=== PATIENT | female | born 1950 | race Caucasian/White ===

== ENCOUNTER 2018-12-30 10:19 | Emergency (ER) | payer BC, OTHER ==
[~2018-12-30] VITALS: Ht 157.5 cm; Wt 69.4 kg
--- OUTSIDE RECORDS SUMMARY | 2018-12-30 10:22 | XMS REPORT | Summary of Care ---
Author Author [facility] [place] Organization [facility] Address Unknown Phone Unavailable Encounter HQ Encntr_alijoanne(FIN) [id number] Date(s): 08/24/15 - 08/24/15 [facility] [place] [address] [place], [place] [address] [phone] Discharge Disposition: Home Attending Physician: Itzel Campos MD Vital Signs No data available for this section Problem List No data available for this section Allergies, Adverse Reactions, Alerts No data available for this section Medications No data available for this section Results No data available for this section Immunizations No data available for this section Procedures No data available for this section Social History No data available for this section Assessment and Plan No data available for this section
--- OUTSIDE RECORDS SUMMARY | 2018-12-30 10:22 | XMS REPORT | Continuity of Care Document ---
Author Author [employer] Organization [employer] Address Unknown Phone Unavailable Care Team Providers Care Overseamer Name Role Phone [employer] Unavailable Unavailable Problems Problem Status Onset Date Classification Date Reported Comments Source Z78.0 - ASYMPTOMATIC MENOPAUSAL STATE Active 08/12/2015 [facility] [place] F10.97 - "ALCOHOL USE, UNSP WITH ALCOHOL Active 05/31/2015 [facility] [place] Final: Encounter for screening mammogram for malignant neoplasm of breast 08/15/2015 [facility] [place] Final: Atherosclerotic heart disease of [place] coronary artery without angina pectoris 08/15/2015 [facility] [place] Medications No Data Provided for This Section Allergies, Adverse Reactions, Alerts No Known Medication Allergies Immunizations No Data Provided for This Section Results No Data Provided for This Section Pathology Reports No Data Provided for This Section Diagnostic Reports Report Value Date Source Brain wo contrast MRI HISTORY: G31.84 Mild cognitive impairment, so stated - G31.84 Mild cognitive impairment, so stated TECHNIQUE: Multiplanar, multisequence MR of the brain was performed without contrast. COMPARISON: Study dated 06/01/2015. FINDINGS: The structures of the posterior fossa and supratentorial space are developmentally normal. Normal ley-white matter differentiation is preserved throughout. The CSF containing spaces of the brain are prominent but maintain normal symmetry. There is no acute intracranial hemorrhage, intraparenchymal mass, or ischemia. The central arterial and major dural sinus flow voids are patent. The orbital contents are within normal limits. The pneumatized portions of the skull are clear. IMPRESSION: Underlying age-related involutional changes again seen. No acute intracranial pathology. [id number] 02/22/2017 [facility] Bone Density DXA [employer] MA - Bone Density DXA [employer] MA BONE DENSITY EVALUATION: 08/24/2015 CLINICAL DATA: Post menopausal. RISK FACTORS: race. FINDINGS: Bone density evaluation was performed 08/24/2015 on the AP L1-L4 region of spine using a Hologic unit. The BMD average for the exam is 0.845 g/cm2. The T-score is -1.80. This matches the World Health Organization's criteria for osteopenia and places the patient at a medium risk for fracture. An additional bone density evaluation was performed 08/24/2015 on the right femur neck using a Hologic unit. The BMD average for the exam is 0.536 g/cm2. The T-score is -2.80 and the Z-score is -1.20. This matches the World Health Organization's criteria for osteoporosis and places the patient at a high risk for fracture. An additional bone density evaluation was performed 08/24/2015 on the right hip using a Hologic unit. The BMD average for the exam is 0.698 g/cm2. The T-score is -2.00 and the Z-score is -0.70. This matches the World Health Organization's criteria for osteopenia and places the patient at a medium risk for fracture. An additional bone density evaluation was performed 08/24/2015 on the left femur neck using a Hologic unit. The BMD average for the exam is 0.559 g/cm2. The T- score is -2.60 and the Z-score is -1.00. This matches the World Health Organization's criteria for osteoporosis and places the patient at a high risk for fracture. An additional bone density evaluation was performed 08/24/2015 on the left hip using a Hologic unit. The BMD average for the exam is 0.652 g/cm2. The T-score is -2.40 and the Z-score is -1.10. This matches the World Health Organization's criteria for osteopenia and places the patient at a medium risk for fracture. IMPRESSION: OSTEOPOROSIS Patient is at high risk for fracture. This exam was dictated and interpreted by [id number] for ANABELLA Patricio. Keny Castillo M.D., cm/beka:08/25/2015 08:00:59 Chemistry Technician: Adelina BOATENG(Carley)(M), [facility] 08/24/2015 ANABELLA Patricio Digital Mammo Screening Jaclyn MA - DIGITAL MAMMO SCREENING JACLYN MA BILATERAL DIGITAL SCREENING MAMMOGRAM WITH CAD: 08/12/2015 CLINICAL: Routine screening. Current study was evaluated with a Computer Aided Detection (CAD) system. Comparison is made to exams dated: 02/16/2011 mammogram, 12/01/2009 mammogram, 12/13/2008 mammogram, 02/24/2007 mammogram and 12/21/2005 mammogram - [facility]. There are scattered fibroglandular densities in both breasts. No significant masses, calcifications, or other findings are seen in either breast. There has been no significant interval change. IMPRESSION: NEGATIVE There is no mammographic evidence of malignancy. A 1 year screening mammogram is recommended. Cassie pretty/penrad:08/12/2015 15:57:01 Chemistry Technician: Carlyn BOATENG(R)(M), [facility] This exam was dictated and interpreted by [id number] at [facility] [place]. 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 CLINICAL INDICATION: . Sacral use, dementia COMPARISON: None available. TECHNIQUE : Multiplanar imaging of the brain was obtained both prior to and after uncomplicated IV administration of 15 cc Omniscan FINDINGS: There is no hemorrhage, mass lesion, extra axial collection, cerebral edema, or mass effect. Diffusion sequences are normal. There is moderate generalized cortical and deep white matter volume loss with passive enlargement of the ventricles and sulci. Volume loss has no lobar dominant/asymmetry. This thalamic signals and volumes are normal. The mamillary bodies are minimally hyperintense without volume loss. The paravertebral ductal ley matter is normal.. There are bilateral pontine signal abnormality is without mass effect. The lateral ventricles, cortical sulci, and basal cisterns are patent. The cerebellar tonsils are above foramen magnum. The sella is normal. The vascular flow-voids are unremarkable. There is no abnormal enhancement. The paranasal sinuses, orbits and mastoids are unremarkable. IMPRESSION: 1. Moderate generalized cortical and deep white matter volume loss without lobar dominance /asymmetries. 2. 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 No substantial cerebral microangiopathic changes are present.. 06/01/2015 LATRICIA Patricio Consultation Notes No Data Provided for This Section Discharge Summaries No Data Provided for This Section History and Physicals No Data Provided for This Section Vital Signs No Data Provided for This Section Encounters Location Location Details Encounter Type Encounter Number Reason For Visit Attending Provider ADM Date DC Date Status Source [facility] [place] [facility] [id number] Itzel Campos 06/01/2015 06/02/2015 [facility] [place] [facility] [place] [facility] [id number] Itzel Campos 08/12/2015 08/13/2015 [facility] [place] [facility] [place] [facility] [id number] Itzel Campos 08/24/2015 08/24/2015 [facility] [place] [place] [facility] [id number] Drew Phillips 02/22/2017 02/23/2017 [facility] [place] Procedures No Data Provided for This Section Assessment and Plan No Data Provided for This Section Plan of Care No Data Provided for This Section Social History Social History Date Source No data available for this section 02/23/2017 [facility] [place] Family History No Data Provided for This Section Advance Directives No Data Provided for This Section Functional Status No Data Provided for This Section
--- OUTSIDE RECORDS SUMMARY | 2018-12-30 10:22 | XMS REPORT | Summary of Care ---
Author Author [facility] [place] Organization [facility] [place] Address Unknown Phone Unavailable Encounter HQ Encntr_alijoanne([facility]) [id number] Date(s): 06/01/15 - 06/01/15 [facility] [place] [address] [place], [place] [address] [phone] Discharge Disposition: Home Attending Physician: Itzel Campos [...]
--- OUTSIDE RECORDS SUMMARY | 2018-12-30 10:22 | XMS REPORT | Summary of Care ---
Author Author [facility] [place] Organization [facility] [place] Address Unknown Phone Unavailable Encounter HQ Dianantr_nealjoanne([facility]) [id number] Date(s): 02/22/17 - 02/22/17 [facility] [place] [address] [place], [place] [address] [phone] Discharge Disposition: Home or Self Care Attending Physician: Drew Phillips MD Vital Signs No data available for [...]
--- OUTSIDE RECORDS SUMMARY | 2018-12-30 10:22 | XMS REPORT | Summary of Care ---
Author Author [facility] [place] Organization [facility] [place] Address Unknown Phone Unavailable Encounter HQ Encntr_alias(FIN) [id number] Date(s): 08/12/15 - 08/12/15 [facility] [place] [address] [place], [place] [address] [phone] Final: Encounter for screening mammogram for malignant neoplasm of breast Final: Atherosclerotic heart disease of [place] coronary artery without angina pe ctoris Discharge Disposition: Home Attending Physician: Itzel Campos [...]
--- OUTSIDE RECORDS SUMMARY | 2018-12-30 10:23 | XMS REPORT | Summary of Care ---
Author Author Robel Jimenez, Bella Organization Unknown Address Unknown Phone Unavailable Care Team Providers Care Radiology Interventional Physician Name Role Phone HAFSA MOORE M.D. Unavailable Bella Huston R.N. 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 Quantity: 90 HAFSA MOORE M.D. * Start : 10-Jan-2016 Active Donepezil HCl - 5 MG Oral Tablet TAKE 1 TABLET Daily NEEDS OFFICE VISIT * Quantity: 30 Refills: 0 HAFSA MOORE M.D. * Start : 21-Jul-2015 Active DULoxetine HCl - 60 MG Oral Capsule Delayed Release Particles TAKE 1 CAPSULE DAILY * Quantity: 90 Refills: 0 TERESA Rodriguez, HAFSA * Start : 14-Sep-2015 Active Lisinopril 40 MG Oral Tablet TAKE 1 TABLET BY MOUTH EVERY DAY FOR BLOOD PRESSURE needs office visit * Quantity: 30 Refills: 0 TERESA Rodriguez, HAFSA * Start : 14-Sep-2015 Active Allergies and Adverse Reactions Name Dates Details Codeine Derivatives (Allergy) Status: Active Past Medical History Name Dates Details History of depression (V11.8, Z86.59) Status: Resolved History of herpes labialis (V12.09, Z86.19) Status: Resolved History of herpes zoster (V12.09, Z86.19) Status: Resolved History of Need for hepatitis C screening test (V73.89, Z11.59) Status: Resolved Procedures Procedure Dates Details Procedures not documented Immunization Name Dates Details Influenza on: 13-Jan-2015 Prevnar 13 Intramuscular Suspension Lot #: [id number] on: 21-Jul-2015 Fluzone Quadrivalent 0.5 ML Intramuscular Suspension Lot #: [id number] on: 30-Dec-2015 Family History Name Dates Details Family history of thyroid disease (V18.19, Z83.49) Status: Active Name Dates Details Family history of thyroid disease (V18.19, Z83.49) Status: Active Name Dates Details Family history of hypertension (V17.49, Z82.49) Status: Active Family history of diabetes mellitus (V18.0, Z83.3) Status: Active Social History Name Dates Details - Status: Name Dates Details Never smoker Vital Signs Date Test Result Details No Known Vitals to report Results Date Description Value Details Results not documented Plan of Care Name Dates Details Planned Observations Planned Goals not documented Instructions Name Dates Details Instructions not documented Encounters No Encounter data documented Encounter Diagnosis: Problem not documented On: 29-Apr-2018
[2018-12-30] MEDS ORDERED: BACITRACIN ZINC 0.9GM TP ONE (10:30)
[2018-12-30] MEDS ORDERED: LIDOCAINE HCL 1% 2 ML AMP INJ ONE (11:00)
[2018-12-30] MEDS ORDERED: TETANUS/DIPHTHERIA TOX ADULT 0.5 ML SYR IM ONE (11:45)
== END 2018-12-30 11:16 | disposition home or self-care (01) ==
LOC: ER 10:19
DX: S91.011A Laceration without foreign body, right ankle, initial encounter (principal); S91.115A Laceration without foreign body of left lesser toe(s) without damage to nail, initial encounter; W25.XXXA Contact with sharp glass, initial encounter; Y92.008 Other place in unspecified non-institutional (private) residence as the place of occurrence of the external cause
CPT/HCPCS: 90471; 90714; 99284

== ENCOUNTER 2019-01-07 09:51 | Inpatient (IN) | payer OTHER ==
[~2019-01-07] VITALS: Ht 157.5 cm; Wt 60.1 kg
--- OUTSIDE RECORDS SUMMARY | 2019-01-07 09:55 | XMS REPORT | Continuity of Care Document ---
Author Author [employer] Organization [employer] Address Unknown Phone Unavailable Care Team Providers Care Clinic Receptionist Name Role Phone [employer] Unavailable Unavailable Problems Problem Status Onset Date Classification Date Reported Comments Source Z78.0 - ASYMPTOMATIC MENOPAUSAL STATE Active 08/12/2015 [facility] [place] F10.97 - "ALCOHOL USE, UNSP WITH ALCOHOL Active 05/31/2015 [facility] [place] Final: Encounter for screening mammogram for malignant neoplasm of breast 08/15/2015 [facility] [place] Final: Atherosclerotic heart disease of [place] coronary artery without angina pectoris 08/15/2015 [facility] [place] Medications No Data Provided for This Section [...] changes again seen. No acute intracranial pathology. [id number] 02/22/2017 [facility] [place] Bone Density DXA [employer] MA - [...] This exam was dictated and interpreted by [id number] for ANABELLA Patricio. Keny Castillo M.D., cm/beka:08/25/2015 08:00:59 Corporate Law Specialist: Adelina BOATENG(Carley)(M), [facility] 08/24/2015 ANABELLA Patricio Digital Mammo Screening Jaclyn MA - DIGITAL MAMMO SCREENING JACLYN MA BILATERAL DIGITAL SCREENING MAMMOGRAM WITH CAD: 08/12/2015 CLINICAL: Routine screening. Current study was evaluated with a Computer Aided Detection (CAD) system. Comparison is made to exams dated: 02/16/2011 mammogram, 12/01/2009 mammogram, 12/13/2008 mammogram, 02/24/2007 mammogram and 12/21/2005 mammogram - [facility]. There are scattered fibroglandular densities in both breasts. No significant masses, calcifications, or other findings are seen in either breast. There has been no significant interval change. IMPRESSION: NEGATIVE There is no mammographic evidence of malignancy. A 1 year screening mammogram is recommended. Cassie pretty/penrad:08/12/2015 15:57:01 Corporate Law Specialist: Carlyn BOATENG(R)(M), [facility] This exam was dictated and interpreted by [id number] at [facility] [place]. 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 CLINICAL INDICATION: . Sacral use, dementia [...] Provider ADM Date DC Date Status Source [facility] [place] Out[facility] [id number] Itzel Campos 06/01/2015 06/02/2015 [facility] [place] [facility] [place] [facility] [id number] Itzel Campos 08/12/2015 08/13/2015 [facility] [place] [facility] [place] Out[facility] [id number] Itzel Campos 08/24/2015 08/24/2015 [facility] [place] [facility] [place] Out[facility] [id number] Drew Phillips 02/22/2017 02/23/2017 [facility] [place] Procedures No Data Provided for This Section Assessment and Plan No Data Provided for This Section Plan of Care No Data Provided for This Section Social History Social History Date Source No data available for this section 02/23/2017 [facility] [place] Family History No Data Provided for This Section Advance Directives No Data Provided for This Section Functional Status No Data Provided for This Section
[2019-01-07] MEDS ORDERED: SODIUM CHLORIDE 0.9% 1000ML 1,000 ML IV STA (10:13)
[2019-01-07] MEDS ORDERED: ONDANSETRON HCL INJ 2MG/ML 2ML 2 MG/ML VIAL IV ONE (10:13)
[2019-01-07] MEDS ORDERED: VANCOMYCIN 1GM/NS 250 ML 250 ML IV ONE (10:15)
[2019-01-07] MEDS: PIPER-TAZ 3.375 GM 50 ML IV SCH ×4 (11:48→23:01)
--- NOTE | 2019-01-07 11:56 | Diagnostic Imaging Report ---
EXAMINATION: CHEST SINGLE (PORTABLE) INDICATION: Fever COMPARISON: None FINDINGS: LINES/TUBES:None LUNGS:The lungs are well-inflated. No focal consolidation or pulmonary edema. PLEURA:No pleural effusion or pneumothorax. MEDIASTINUM:The cardiomediastinal silhouette appears normal in size and shape. BONES/SOFT TISSUES:No acute osseous injury. ABDOMEN:No free air under the diaphragm. IMPRESSION: No focal pneumonia or pulmonary edema. Signed by: David Aldana MD on 01/07/2019 11:06 AM
--- NOTE | 2019-01-07 11:56 | Diagnostic Imaging Report ---
EXAMINATION: FOOT LEFT COMPLETE INDICATION: Trauma COMPARISON: None FINDINGS: AP, lateral and oblique images of the left foot were obtained. No acute fracture or dislocation. Small ossific fragment along the medial aspect of the distal first metatarsal consistent with an old avulsion injury. Mild degenerative changes of the first MTP joint. IMPRESSION: No acute osseous injury. Signed by: David Aldana MD on 01/07/2019 11:09 AM
[2019-01-07 11:57] LABS: BASOPHILS # (AUTO) 0.1 (0.0-0.1); BASOPHILS % 0.6 % (0.0-1.0); EOSINOPHILS # (AUTO) 0.2 (0.0-0.4); EOSINOPHILS % 2.3 % (0.0-6.0); HEMATOCRIT 37.6 % (34.2-44.1); HEMOGLOBIN 12.7 g/dL (12.0-16.0); LYMPHOCYTES # (AUTO) 1.5 (1.0-3.2); MEAN CORPUSCULAR HEMOGLOBIN 32.9 pg (28-32); MEAN CORPUSCULAR HGB CONC 33.8 g/dL (31-35); MEAN CORPUSCULAR VOLUME 97.4 fL (81-99); MONOCYTES # (AUTO) 0.7 (0.2-0.8); MONOCYTES % 8.5 % (4.4-11.3); NEUTROPHILS # (AUTO) 6.1 (2.1-6.9); NEUTROPHILS % 71.1 % (38.7-80.0); PLATELET COUNT 380 x10e3/uL (140-360); RED BLOOD COUNT 3.86 x10e6/uL (3.6-5.1); RED CELL DISTRIBUTION WIDTH 14.4 % (11.7-14.4)
[2019-01-07 12:05] LABS: INR 0.84
[2019-01-07 12:06] LABS: PARTIAL THROMBOPLASTIN TIME 34.6 seconds (23.8-35.5)
[2019-01-07 12:12] LABS: ALANINE AMINOTRANSFERASE 18 IU/L (0-55); ALBUMIN 3.2 g/dL (3.5-5.0); ALBUMIN/GLOBULIN RATIO 0.7 (0.8-2.0); ALKALINE PHOSPHATASE 87 IU/L (40-150); BLOOD UREA NITROGEN 14 mg/dL (7-26); BUN/CREATININE RATIO 21 (6-25); CALCIUM 10.1 mg/dL (8.4-10.2); CARBON DIOXIDE 28 mmol/L (22-29); CHLORIDE 98 mmol/L (98-107); CREATINE KINASE 36 IU/L (29-168); CREATININE, SERUM 0.67 mg/dL (0.57-1.11); EST GLOMERULAR FILTRATION RATE > 60 ML/MIN (60-); GLUCOSE 76 mg/dL (74-118); MAGNESIUM 1.9 MG/DL (1.3-2.1); SODIUM 136 mmol/L (136-145)
[2019-01-07 13:23] LABS: BILIRUBIN,URINE NEGATIVE (NEGATIVE); CLARITY,URINE CLEAR (CLEAR); COLOR,URINE YELLOW (YELLOW); KETONES,URINE 1+ (NEGATIVE); LEUKOCYTE ESTERASE ,URINE TRACE (NEGATIVE); NITRITE,URINE NEGATIVE (NEGATIVE); PROTEIN,URINE DIPSTICK NEGATIVE (NEGATIVE); URINE UROBILINOGEN 0.2 mg/dL (0.2 - 1)
[2019-01-07 13:33] LABS: BACTERIA,URINE RARE /HPF; EPITHELIAL CELLS,URINE FEW /LPF
[2019-01-07] MEDS ORDERED: SODIUM CHLORIDE 0.9% 1000ML 1,000 ML IV SCH (13:47)
--- OUTSIDE RECORDS SUMMARY | 2019-01-07 13:56 | XMS REPORT | Continuity of Care Document ---
Author Author [employer] Organization [employer] Address Unknown Phone Unavailable Care Team Providers Care Shirring Machine Operator Automatic Name Role Phone [employer] Information [employer] Unavailable Unavailable Problems Problem Status Onset Date Classification Date Reported Comments Source Z78.0 - ASYMPTOMATIC MENOPAUSAL STATE Active 08/12/2015 [facility] [place] F10.97 - "ALCOHOL USE, UNSP WITH ALCOHOL Active 05/31/2015 [facility] [place] Final: Encounter for screening mammogram for malignant neoplasm of breast 08/15/2015 [facility] [place] Final: Atherosclerotic heart disease of [place] coronary artery without angina pectoris 08/15/2015 [facility] [place] Medications No Data Provided for This Section [...] changes again seen. No acute intracranial pathology. [id number] 02/22/2017 [facility] [place] Bone Density DXA [employer] MA - [...] This exam was dictated and interpreted by [id number] for ANABELLA Patricio. Keny Castillo M.D., cm/beka:08/25/2015 08:00:59 Restaurant And Bar Manager: Adelina BOATENG(Carley)(M), [facility] 08/24/2015 ANABELLA Patricio Digital Mammo Screening Jaclyn MA - DIGITAL MAMMO SCREENING JACLYN MA BILATERAL DIGITAL SCREENING MAMMOGRAM WITH CAD: 08/12/2015 CLINICAL: Routine screening. Current study was evaluated with a Computer Aided Detection (CAD) system. Comparison is made to exams dated: 02/16/2011 mammogram, 12/01/2009 mammogram, 12/13/2008 mammogram, 02/24/2007 mammogram and 12/21/2005 mammogram - [facility]. There are scattered fibroglandular densities in both breasts. No significant masses, calcifications, or other findings are seen in either breast. There has been no significant interval change. IMPRESSION: NEGATIVE There is no mammographic evidence of malignancy. A 1 year screening mammogram is recommended. Cassie pretty/penrad:08/12/2015 15:57:01 Restaurant And Bar Manager: Carlyn BOATENG(R)(M), [facility] This exam was dictated and interpreted by [id number] at [facility] [place]. 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 CLINICAL INDICATION: . Sacral use, dementia [...] Provider ADM Date DC Date Status Source [facility] [place] Out[facility] [id number] Itzel Campos 06/01/2015 06/02/2015 [facility] [place] [facility] [place] Out[facility] [id number] Itzel Campos 08/12/2015 08/13/2015 [facility] [place] [facility] [place] Out[facility] [id number] Itzel Campos 08/24/2015 08/24/2015 [facility] [place] [facility] [place] Out[facility] [id number] Drew Phillips 02/22/2017 02/23/2017 [facility] [place] Procedures No Data Provided for This Section Assessment and Plan No Data Provided for This Section Plan of Care No Data Provided for This Section Social History Social History Date Source No data available for this section 02/23/2017 [facility] [place] Family History No Data Provided for This Section Advance Directives No Data Provided for This Section Functional Status No Data Provided for This Section
--- OUTSIDE RECORDS SUMMARY | 2019-01-07 13:56 | XMS REPORT ---
Author Author [facility] Address Unknown Phone Unavailable Care Team Providers Care Bi Lead Name Role Phone Uriel BRENNAN Unavailable Unavailable Problems This patient has no known problems. Allergies, Adverse Reactions, Alerts This patient has no known allergies or adverse reactions. Medications This patient has no known medications. Results Test Description Test Time Test Comments Text Results Atomic Results Result Comments FOOT LEFT COMPLETE 2019-01-07 11:06:00 [facility] [address] [place] [address] Patient Name: RO GONZALEZ V MR #: [id number] : 1950 Age/Sex: 68/F Req #: [id number] Adm Physician: Ordered by: ARPIT BRENNAN MD Report #: [id number] Location: ER Room/Bed: Procedure: [id number] DX/FOOT LEFT COMPLETE Exam Date: 01/07/19 Exam Time: 1040 REPORT STATUS: Signed EXAMINATION: FOOT LEFT COMPLETE INDICATION: Trauma COMPARISON: None FINDINGS: AP, lateral and oblique images of the left foot were obtained. No acute fracture or dislocation. Small ossific fragment along the medial aspect of the distal first metatarsal consistent with an old avulsion injury. Mild degenerative changes of the first MTP joint. IMPRESSION: No acute osseous injury. Signed by: Latrice Aldana MD on 01/07/2019 11:09 AM Dictated By: LATRICE ALDANA MD 08 Transcribed By: ISHAAN on 01/07/191108 COPY TO: ARPIT BRENNAN MD CHEST SINGLE (PORTABLE) 2019-01-07 11:05:00 [place] [address] Patient Name: RO GONZALEZ V MR #: [id number] : 1950 Age/Sex: 68/F Req #: [id number] Adm Physician: Ordered by: ARPIT BRENNAN MD Report #: [id number] Location: ER Room/Bed: Procedure: [id number] DX/CHEST SINGLE (PORTABLE) Exam Date: 01/07/19 Exam Time: 1040 REPORT STATUS: Signed EXAMINATION: CHEST SINGLE (PORTABLE) DANA CATION: Fever COMPARISON: None FINDINGS: LINES/TUBES:None LUNGS:The lungs are well-inflated. No focal consolidation or pulmonary edema. PLEURA:No pleural effusion or pneumothorax. MEDIASTINUM:The cardiomediastinal silhouette appears normal in size and shape. BONES/SOFT TISSUES:No acute osseous injury. ABDOMEN:No free air under the diaphragm. IMPRESSION: No focal pneumonia or pulmonary edema. Signed by: Latrice Aldana MD on 01/07/2019 11:06 AM Dictated By: LATRICE ALDANA MD 05 Transcribed By: ISHAAN on 01/07/191105 COPY TO: ARPIT BRENNAN MD
[2019-01-07] MEDS ORDERED: ONDANSETRON HCL INJ 2MG/ML 2ML 2 MG/ML VIAL IV PRN (14:00)
--- NOTE | 2019-01-07 14:22 | NUR ---
report to Tia, RN
[2019-01-07 15:26] VITALS: BP 114/74
[2019-01-07] MEDS: ACETAMINOPHEN 325 MG TAB PO PRN (16:09)
[2019-01-07] MEDS ORDERED: ARICEPT5 MG PO (18:38)
[2019-01-07] MEDS ORDERED: LISINOPRIL10 MG PO (18:38)
[2019-01-07] MEDS ORDERED: DEPAKOTE125 MG PO (18:38)
[2019-01-07] MEDS ORDERED: SEROQUEL25 MG PO (18:38)
[2019-01-07] MEDS ORDERED: PROZAC20 MG PO (18:38)
[2019-01-07 19:22] VITALS: BP 114/74
[2019-01-07] MEDS: QUETIAPINE FUMARATE 25 MG TAB PO SCH (20:14)
[2019-01-07] MEDS: DIVALPROEX SODIUM 125 MG TABDR...ER PO SCH (20:14)
[2019-01-07] MEDS: DONEPEZIL HCL 5 MG TAB PO SCH (20:14)
[2019-01-07 20:27] VITALS: BP 131/69
[2019-01-07] MEDS: VANCOMYCIN 1GM/NS 250 ML 250 ML IV SCH (21:01)
[2019-01-08] VITALS (9 sets, daily range): BP systolic 115–162; BP diastolic 56–97
[2019-01-08] MEDS: PIPER-TAZ 3.375 GM 50 ML IV SCH ×4 (05:08→23:46)
[2019-01-08 05:36] LABS: BASOPHILS # (AUTO) 0.1 (0.0-0.1); BASOPHILS % 0.7 % (0.0-1.0); EOSINOPHILS # (AUTO) 0.3 (0.0-0.4); EOSINOPHILS % 3.2 % (0.0-6.0); LYMPHOCYTES # (AUTO) 1.3 (1.0-3.2); LYMPHOCYTES % 15.7 % (18.0-39.1); MEAN CORPUSCULAR HEMOGLOBIN 32.5 pg (28-32); MEAN CORPUSCULAR HGB CONC 32.4 g/dL (31-35); MONOCYTES # (AUTO) 0.8 (0.2-0.8); MONOCYTES % 9.9 % (4.4-11.3); NEUTROPHILS # (AUTO) 5.7 (2.1-6.9); NEUTROPHILS % 69.9 % (38.7-80.0); PLATELET COUNT 276 x10e3/uL (140-360); RED BLOOD COUNT 3.38 x10e6/uL (3.6-5.1); RED CELL DISTRIBUTION WIDTH 14.2 % (11.7-14.4)
[2019-01-08 05:37] LABS: MEAN CORPUSCULAR VOLUME 100.6 fL (81-99)
[2019-01-08 05:56] LABS: ALANINE AMINOTRANSFERASE 33 IU/L (0-55); ALBUMIN 2.5 g/dL (3.5-5.0); ALBUMIN/GLOBULIN RATIO 0.7 (0.8-2.0); ALKALINE PHOSPHATASE 90 IU/L (40-150); ANION GAP 12.4 mmol/L (8-16); BLOOD UREA NITROGEN 18 mg/dL (7-26); BUN/CREATININE RATIO 27 (6-25); CALCIUM 8.8 mg/dL (8.4-10.2); CARBON DIOXIDE 24 mmol/L (22-29); CHLORIDE 105 mmol/L (98-107); CREATININE, SERUM 0.67 mg/dL (0.57-1.11); EST GLOMERULAR FILTRATION RATE > 60 ML/MIN (60-); GLUCOSE 98 mg/dL (74-118); POTASSIUM 4.4 mmol/L (3.5-5.1); SODIUM 137 mmol/L (136-145)
[2019-01-08 06:38] LABS: PLATELET ESTIMATE ADEQUATE
[2019-01-08 06:39] LABS: PLATELET MORPHOLOGY COMMENT FEW LARGE; RBC MORPHOLOGY COMMENT NORMAL
--- NOTE | 2019-01-08 07:10 | NUR ---
received am report from nurse and morning rounds done. pt is alert, lying in bed and is very agitated. pt expresses that she is mad about the sort manager drawing blood. call light within reach and instructed pt to call for help. side rails are up.
[2019-01-08] MEDS: LISINOPRIL 20 MG TAB PO SCH (08:32)
[2019-01-08] MEDS: DIVALPROEX SODIUM 125 MG TABDR...ER PO SCH ×2 (08:32→20:37)
[2019-01-08] MEDS: FLUOXETINE HCL 20 MG CAP PO SCH (08:32)
[2019-01-08] MEDS ORDERED: LISINOPRIL 10 MG TAB PO SCH (09:00)
[2019-01-08] MEDS ORDERED: DIVALPROEX SODIUM 125 MG PO SCH (09:00)
[2019-01-08] MEDS: VANCOMYCIN 1GM/NS 250 ML 250 ML IV SCH ×2 (09:30→22:01)
--- NOTE | 2019-01-08 09:56 | NUR ---
Dr. Atkins is at the bedside. Discussed with daughter about the patient's social needs and possible plan for senior care placement. daughter stated that she needs to speak with aunt who is also POA and make a decision. Will follow up with daughter about concerns and decisions.
--- NOTE | 2019-01-08 14:55 | NUR ---
PT WAS ALERT AND KNEW WHO SHE WAS, WHERE SHE WAS, AND GAVE ALL INFORMATION FOR DISCHARGE PLAN ASSESSMENT. WAS EDUCATED BY NURSE THAT DAUGHTER IS POA AND WANTS HER PLACED SOMEWHERE. SHE WILL HAVE TO MEET CRITERIA FOR PLACEMENT AND AT THIS TIME SHE DOES NOT. POA IS ONLY IN EFFECT IF PT IS NOT ALERT AND ORIENTED WITH 2 MD DOCUMENTATION AND A GUARDIANSHIP PROCESS STARTED. UNFORTUNATELY A MEMORY CARE UNIT IS NOT COVERED BY INSURANCE BUT GAVE 3 BOOKS OF FACILITIES THAT FAMILY CAN GO AND LOOK AND PLACE HER THEMSELVES.
[2019-01-08] MEDS ORDERED: CHOLESTYRAMINE 4 GM PACKET PO PRN (17:15)
--- NOTE | 2019-01-08 19:00 | NUR ---
RECEIVED PATIENT IN BEDSIDE REPORT. PATIENT RESTING IN BED AT THIS TIME, NO PAIN REPORTED, NO S&S OF DISTRESS NOTED. BED LOCKED IN LOWEST POSITION, SIDE RAILS UPX2, CALL LIGHT IN REACH.
[2019-01-08] MEDS: DONEPEZIL HCL 5 MG TAB PO SCH (20:37)
[2019-01-08] MEDS: QUETIAPINE FUMARATE 25 MG TAB PO SCH (20:37)
[2019-01-08] MEDS: ACETAMINOPHEN 325 MG TAB PO PRN (20:38)
[2019-01-08] MEDS: CHLORDIAZEPOXIDE HCL 10 MG CAP PO PRN (23:05)
--- NOTE | 2019-01-08 23:05 | NUR ---
PATIENT HAS BEEN AGITATED FOR THE PAST HOUR, STATING SHE FORGOT TO TAKE HER MEDICATION. REMINDED PATIENT THAT THIS NURSE GAVE HER HOME MEDICATIONS AT 2036. PATIENT STATES SHE DOES NOT KNOW WHAT HAPPENED BECAUSE SHE SHOULD BE ASLEEP. PATIENT VERY RESTLESS, CONFUSED ABOUT WHERE HER THINGS ARE IN THE ROOM, AND ASKING THEM TO BE REARRANGED. PATIENT REPEATED HER QUESTIONS ABOUT THE MEDICATION, REMINDED HER AGAIN THAT SHE TOOK IT ALREADY. OFFERED PRN MEDICATION TO HELP HER CALM DOWN, PATIENT AGREED TO TRY IT WITH THE HOPES IT HELPS HER FALL ASLEEP. REMINDED PATIENT THAT BED ALARM IS ON, AND TO CALL IF SHE NEEDED ANYTHING. BED LOCKED IN LOWEST POSITION, SIDE RAILS UPX2, CALL LIGHT IN REACH.
[2019-01-09] VITALS (7 sets, daily range): BP systolic 141–181; BP diastolic 84–108
--- NOTE | 2019-01-09 03:34 | NUR ---
PATIENT CALLED, STATING SHE COULD NOT REMEMBER WHERE SHE WAS OR WHY SHE WAS HERE. REMINDED PATIENT OF LOCATION AND SITUATION, AND SHE REMEMBERED AFTER A FEW MINUTES. STATED SHE FELL ASLEEP AND FORGOT WHERE SHE WAS WHEN SHE WOKE UP. REMINDED PATIENT WE WILL BE BACK SOON FOR VITALS, AND SHE ASKED THAT WE SKIP 0400 VITALS SO SHE CAN SLEEP. WILL GET VITALS WHEN SHE WAKES UP. WILL CONTINUE TO MONITOR. BED LOCKED IN LOWEST POSITION, SIDE RAILS UPX2, CALL LIGHT IN REACH.
--- NOTE | 2019-01-09 07:00 | NUR ---
BEDSIDE SHIFT REPORT RECEIVED FROM THE CALL OR CONTACT CENTRE TEAM LEADER RN. EDUCATED PT ABOUT FALL PRECAUTIONS. PT VERBALIZED UNDERSTANDING. CALL LIGHT WITH IN EASY REACH. BED IS LOCKED. PT DENIES NEEDS AT THIS TIME.
[2019-01-09] MEDS: PIPER-TAZ 3.375 GM 50 ML IV SCH ×4 (07:12→23:56)
[2019-01-09] MEDS: FLUOXETINE HCL 20 MG CAP PO SCH (08:00)
[2019-01-09] MEDS: DIVALPROEX SODIUM 125 MG TABDR...ER PO SCH ×2 (08:00→22:11)
[2019-01-09] MEDS: LISINOPRIL 20 MG TAB PO SCH (08:27)
[2019-01-09] MEDS: VANCOMYCIN 1GM/NS 250 ML 250 ML IV SCH ×2 (11:00→22:11)
--- NOTE | 2019-01-09 11:18 | NUR ---
SPOKE WITH DAUGHTER CRYSTAL, EXPLAINED THAT DOCTOR ORDERED SNF, SHE ADVISED SHE WOULD LIKE HER MOTHER TO HAVE A MEMORY CARE CENTER. I EDUCATED THAT UNFORTUNATELY INSURANCE DOES NOT COVER THAT AND SHE WILL HAVE TO PAY OUT OF POCKET. SHE WILL BE HERE AT 230 TODAY TO POURER OFF INFORMATION FOR THE MEMORY CARE FOR FOLLOW UP UPON DISCHARGE FOR SNF, SHE CHOSE [facility] IN [place] FOR HER SHORT TERM SNF STAY. WILL FAX CLINICALS.
--- NOTE | 2019-01-09 11:26 | NUR ---
[address] [place] [address] FAX: [phone]
--- NOTE | 2019-01-09 12:15 | NUR ---
PT IS VERY AGITATED AND SHOUTING AT TECH. PT REFUSES MEDICATIONS.
[2019-01-09] MEDS: CHLORDIAZEPOXIDE HCL 10 MG CAP PO PRN ×2 (12:36→22:11)
--- NOTE | 2019-01-09 13:00 | NUR ---
FAMILY MEMBER AT BEDSIDE. PT DENIES NEEDS AT THIS TIME. PT IS SITTING ON BED. NO DISTRESS NOTED.
--- NOTE | 2019-01-09 14:16 | NUR ---
FAXED CLINICALS COMPLETED PASRR AND RTF FILED IN CHART
--- NOTE | 2019-01-09 15:01 | NUR ---
WOUNDCARE CONSULT FOR 68 YO FEMALE HX SLIGHT CONFUSION ,TRAMA LACERATION TO RT ANKLE AND LFT 2ND TOE SUTURES REPORTED TO HAVE BEEN ALLPIED X 10 DAYS PT ON CONSERVATIVE PUP WITH 19 LUNA LABS: WBC -8.7 HGB- 11 GLUCOSE-98 NEGATIVE BLOOD CULTURE ASSESSMENT FINDINGS : #1 LFT 2ND TOE 2CM SUTURE LINE INTACT REDDENED WITH SLIGHT SEROUS DRAINAGE NOTED NO FOUL ODOR REPORTS PAIN TO TOUCH OR MOVEMENT SURROUNDING SKIN RED AN BLANCHABLE TRACKING TO JUST BELOW TOE BASE #2 RIGHT INNER ANKLE 4.5 CM SUTURE LINE DRY INTACT WITH NO DRAINAGE NOTED SLT RED TO EDGES REPORTS OF NO PAIN TO AREA AT THIS TIME RECOMMENDATIONS : NURSING TO CONTINUE TO ASSESS AND MONITOR PT STATUS RECONSULT WOUNDCARE NEEDED FOR ANY CONCERNS OR ADVERSE CHANGES NURSING TO APPLY DAILY BACITRACIN OINTMENT TO LFT 2ND TOE SUTURE LINE LEAVE OPEN TO AIR NURSING TO APPLY DAILY BACITRACIN OINTMENT TO RIGHT LATERAL ANKLE SUTURE LINE LEAVE OPEN TO AIR Addendum: 01/09/19 at 1515 by Asif Otoole RN Amended: Links added.
--- NOTE | 2019-01-09 16:37 | NUR ---
RETIREMENT FACILITY DISCHARGE INFORMATION PATIENT HAS BEEN ACCEPTED TO: NAME:NEIL DIAZ ADDRESS: [address] [place] [id number] ACCEPTING MD: SUKI ROOM: 105 NURSE CALL REPORT TO: [phone] IMM SIGNED AND OBTAINED (if applicable): YES VIA PHONE WITH DAUGHTER CRYSTAL PEARSON THE FOLLOWING DOCUMENTS MUST ACCOMPANY PATIENT FOR TRANSFER: CLINICALS PASRR AND RTF
[2019-01-09] MEDS: ACETAMINOPHEN 325 MG TAB PO PRN (17:08)
--- NOTE | 2019-01-09 17:59 | Diagnostic Imaging Report ---
RIGHT ANKLE - 3 Image(s) HISTORY: Cellulitis COMPARISON: None available. FINDINGS: Bones: A 4 mm ossific density adjacent to the tip of the medial malleolus. No aggressive osseous lesion. Joints: The ankle mortise is symmetric. Soft tissues: Nonspecific medial soft tissue swelling. IMPRESSION: 1. Nonspecific medial soft tissue swelling. 2. No radiographic evidence of osteomyelitis. 3. Unhealed 4 mm age-indeterminate avulsion fracture from the tip of the medial malleolus. Signed by: Dr. Siva Rice D.O., M.M.M. on 01/09/2019 5:56 PM
--- NOTE | 2019-01-09 19:00 | NUR ---
BEDSIDE SHIFT REPORT GIVEN TO THE TOWER CRANE OPERATOR RN. PT DENIED FURTHER NEEDS.
--- NOTE | 2019-01-09 19:00 | NUR ---
RECEIVED PATIENT IN BEDSIDE SHIFT REPORT. PATIENT REPORTS NO PAIN AT THIS TIME. PATIENT SLIGHTLY CONFUSED, BUT CALM AT THIS TIME. NO S&S OF DISTRESS NOTED. BED LOCKED IN LOWEST POSITION, SIDE RAILS UPX2, CALL LIGHT IN REACH.
[2019-01-09] MEDS: DONEPEZIL HCL 5 MG TAB PO SCH (22:11)
[2019-01-09] MEDS: QUETIAPINE FUMARATE 25 MG TAB PO SCH (22:11)
[2019-01-10] VITALS (8 sets, daily range): BP systolic 149–165; BP diastolic 73–98
--- NOTE | 2019-01-10 01:49 | Consultation ---
DATE OF CONSULTATION: 01/09/2019 REASON FOR CONSULTATION: Cellulitis of both lower extremities with a swollen 2nd toe, left foot after having a laceration by a beer bottle when carrying the trash outside. HISTORY OF PRESENT ILLNESS: This is a 68-year-old somewhat confused white female with a history of alcoholism, anxiety, and hypertension, who relates that she was taking the trash out of her house and the beer bottle came through the trash and fell on her foot and lacerated both the 2nd toe and the medial aspect of the right ankle. She is currently with a known history of fever, chills, nausea, vomiting with question of the patient when this was done. She is somewhat confused and says it has been done a orxyq-kom-u-half ago. The patient do not know exactly where she have these sutures done. PAST MEDICAL HISTORY: As described above, hypertension, anxiety. PAST SURGICAL HISTORY: Remarkable for laceration to the 2nd toe left foot and laceration to the right ankle with current sutures in place. ALLERGIES: ACCORDING TO THE PATIENT, TO PENICILLIN. CURRENT MEDICATIONS: Note listed in the chart including IV vancomycin and Zosyn. SOCIAL HISTORY: She relates that she stops drinking, does not do any type of smoking. Does relate that she did some recreational pot several years ago. Has three kids. . Retired. FAMILY HISTORY: Noncontributory. REVIEW OF SYSTEMS: CARDIAC: Denies any palpitations or arrhythmias. RESPIRATORY: Denies any shortness of breath or productive cough. GASTROINTESTINAL: Denies any diarrhea or constipation. GENITOURINARY: Denies hematuria or problems voiding. PHYSICAL EXAMINATION: VITAL SIGNS: Afebrile, pulse rate 82, respirations 18, blood pressure 148/108, O2 saturation 97%. Labs show white blood cell count of 8.17, hemoglobin 11.0 with a platelet count of 276. PODIATRIC PHYSICAL EXAMINATION: Reveals the following. VASCULATURE: Pedal pulses of both the DP and PT are palpable. CFT to all toes less than 4 seconds. NEUROLOGIC: Seems to be within normal limits. MUSCULOSKELETAL: Shows muscle mass to be symmetrical. Muscle strength to be 4 to 5/5 to all muscle groups. Some swelling noted to the left forefoot aspect and right ankle joint. DERMATOLOGIC: Reveals a laceration to the medial aspect of the right ankle measuring approximately 2 inches in length. Has an also laceration to the dorsal aspect of the proximal interphalangeal joint 2nd toe when compared to contralateral toes. IMAGING: X-ray reports were reviewed. No evidence of osteomyelitis or deep foreign body. Does have an avulsion fracture to the medial malleolus. ASSESSMENT: Capsulitis cellulitis ascending to the 2nd toe of the left foot with edematous 2nd toe left. PLAN: We will continue IV antibiotics and monitor the patient. We will start Bactroban ointment to the incision areas. We will continue to monitor the patient. GYPSY Ellis/MODL /[id number]
[2019-01-10] MEDS: PIPER-TAZ 3.375 GM 50 ML IV SCH ×2 (06:39→11:08)
--- NOTE | 2019-01-10 07:00 | NUR ---
RECEIVED BEDSIDE SHIFT REPORT RECEIVED FROM THE FOREPART REDUCER RN. EDUCATED PT ABOUT FALL PRECAUTIONS. PT VERBALIZED UNDERSTANDING. BED IS LOCKED AND IN LOWEST POSITION, SIDE RAILS UPX2, CALL LIGHT WITH IN EASY REACH. PT REFUSED YELLOW SOCKS AND BED ALARM. PT DENIES NEEDS AT THIS TIME.
--- NOTE | 2019-01-10 08:14 | NUR ---
EDUCATED ABOUT IMM, VIA PHONE WITH DAUGHTER MS PEARSON, WITH COPY LEFT WITH FAMILY AT BEDSIDE.
[2019-01-10] MEDS: FLUOXETINE HCL 20 MG CAP PO SCH (09:13)
[2019-01-10] MEDS: CHLORDIAZEPOXIDE HCL 10 MG CAP PO PRN ×2 (09:13→20:06)
[2019-01-10] MEDS: DIVALPROEX SODIUM 125 MG TABDR...ER PO SCH ×2 (09:13→22:10)
[2019-01-10] MEDS: LISINOPRIL 20 MG TAB PO SCH (09:14)
[2019-01-10] MEDS: VANCOMYCIN 1GM/NS 250 ML 250 ML IV SCH (09:20)
[2019-01-10] MEDS: BACITRACIN ZINC 15 GM OINT TOP SCH (09:23)
--- NOTE | 2019-01-10 12:30 | NUR ---
DR. WARD AT BEDSIDE. NEW ORDER RECEIVED FOR PICC LINE INSERTION. PT AGREED PICC LINE INSERTION. INFORMED THE SAME TO DAUGHTER CRYSTAL. FAMILY AGREED PICC LINE INSERTION.
[2019-01-10] MEDS: CLINDAMYCIN 300MG 50 ML IV SCH ×2 (13:20→18:10)
--- NOTE | 2019-01-10 13:30 | NUR ---
PT REFUSED PICC LINE. INFORMED THE SAME TO DR. WARD AND DAUGHTER CRYSTAL.
--- NOTE | 2019-01-10 13:32 | NUR ---
PAGED PT DAUGHTER CRYSTAL PER PT REQUEST.
[2019-01-10] MEDS: AZTREONAM 1 GM/NS 50 ML 50 ML IV SCH (14:00)
[2019-01-10] MEDS: LACTOBACILLUS ACIDOPHILUS CAPSULE PO SCH ×2 (14:22→22:10)
--- NOTE | 2019-01-10 14:30 | NUR ---
PT WANTS PICC LINE AFTER TALKING TO THE FAMILY. CONSENT SIGNED. PAGED DR. WARD. UNABLE TO LEAVE MESSAGE. VOICE BOX FULL.
--- NOTE | 2019-01-10 15:00 | NUR ---
PT KEEP REFUSING BLOOD DRAW. LABS CAME MULTIPLE TIME TO DRAW THE BLOOD. PT DOESN'T WANT ANY MORE STICKS. PAGED DR. WARD.
--- NOTE | 2019-01-10 19:00 | NUR ---
BEDSIDE SHIFT REPORT RECEIVED FROM THE WIRE STITCHER RN. PICC LINE RN AT BEDSIDE. PT DENIED FURTHER NEEDS.
--- NOTE | 2019-01-10 19:44 | Diagnostic Imaging Report ---
EXAMINATION: CHEST XRAY POST PROCEDURE INDICATION: ^PICC LINE PLACEMENT ^Y COMPARISON: 01/07/2019 FINDINGS: AP view TUBES and LINES: Right PICC in place with tip projecting over mid to inferior SVC. LUNGS: Lungs are well inflated. There is no evidence of pneumonia or pulmonary edema. PLEURA: No pleural effusion or pneumothorax. HEART AND MEDIASTINUM: The cardiomediastinal silhouette is unremarkable. BONES AND SOFT TISSUES: No acute osseous lesion. Soft tissues are unremarkable. UPPER ABDOMEN: No free air under the diaphragm. IMPRESSION: Right PICC in place with tip projecting over mid to inferior SVC. No visible pneumothorax. Signed by: Dr. Emmett Sandy MD on 01/10/2019 7:41 PM
[2019-01-10] MEDS: ACETAMINOPHEN 325 MG TAB PO PRN (20:06)
--- NOTE | 2019-01-10 20:43 | Consultation ---
DATE OF CONSULTATION: 01/10/2019 SUBJECTIVE: The patient is at bedside, having some discomfort and redness to the left lower extremity and also to the medial aspect of the right ankle. Denies any history of fever, chills, nausea, or vomiting. OBJECTIVE: VITAL SIGNS: Afebrile, pulse rate 84, respirations 18, blood pressure 164/73, and O2 saturation 97%. EXTREMITIES: Pedal pulses palpable. Has erythema to the dorsal aspect of the left lower extremity radiating from the 2nd toe proximally. A very swollen 2nd toe noted, and compared to contralateral side, has erythema surrounding the medial aspect of the right ankle. ASSESSMENT: Cellulitis, possible osteo with avulsion lesion to the medial aspect of the medial malleolus. PLAN: We will continue local wound care. Continue IV antibiotics. We will continue to follow. Continue offloading. GYPSY Ellsi/IAM /[id number]
[2019-01-10] MEDS: QUETIAPINE FUMARATE 25 MG TAB PO SCH (22:10)
[2019-01-10] MEDS: DONEPEZIL HCL 5 MG TAB PO SCH (22:10)
[2019-01-11] VITALS: BP 162/97
[2019-01-11] MEDS: CLINDAMYCIN 300MG 50 ML IV SCH ×2 (00:31→05:47)
[2019-01-11] MEDS: AZTREONAM 1 GM/NS 50 ML 50 ML IV SCH (01:18)
[2019-01-11 04:00] VITALS: BP 150/80
[2019-01-11 07:34] VITALS: BP 149/95
[2019-01-11 08:10] VITALS: BP 149/95
[2019-01-11] MEDS: FLUOXETINE HCL 20 MG CAP PO SCH (09:31)
[2019-01-11] MEDS: DIVALPROEX SODIUM 125 MG TABDR...ER PO SCH (09:31)
[2019-01-11] MEDS: LACTOBACILLUS ACIDOPHILUS CAPSULE PO SCH (09:31)
[2019-01-11] MEDS: BACITRACIN ZINC 15 GM OINT TOP SCH (09:31)
[2019-01-11] MEDS: CHLORDIAZEPOXIDE HCL 10 MG CAP PO PRN (09:32)
[2019-01-11] MEDS: LISINOPRIL 20 MG TAB PO SCH (09:32)
[2019-01-11] MEDS ORDERED: ONDANSETRON HCL 4 MG ORAL DISINTEGRATING TAB PO PRN (10:30)
--- NOTE | 2019-01-11 10:40 | NUR ---
Report called to Leif Nolen and given to Lito Pryor LVN of patient's status.
--- NOTE | 2019-01-11 11:30 | NUR ---
Brenda Talbert, patient's daughter, aware patient to be transferred to [facility] today. Voiced understanding.
--- NOTE | 2019-01-11 12:20 | NUR ---
Taken via stretcher. Transfer package given to [facility]. AAOX2 to person, place. Respirations even and unlabored. Dressing to right PICC clean, dry, and, intact. Denies pain. All personal belongings take with patient.
--- NOTE | 2019-01-12 05:20 | Discharge Summary ---
PRIMARY CARE PHYSICIAN: Dr. Koffi Neely. JEWELRY BENCH MOLDER: Low Rabago DPM FINAL DIAGNOSES: 1. Right medial malleolar cellulitis status post laceration repair. 2. Left toe cellulitis status post laceration status post suture repair. SUMMARY: A 68-year-old female injured her left toe and also her right medial ankle area and had laceration. The patient was sutured in the emergency room, sent home with oral antibiotics, which she did not take. She came in with infection. The patient is stable now. The infection has improving. She is on Azactam and clindamycin. The patient is stable. IV antibiotic has been arranged for the patient to receive skilled facility. The patient has also had a right upper extremity PICC line. The patient's hemoglobin and hematocrit 11 and 34. WBC is 8.17. BUN and creatinine are 18 and 0.6. The patient is stable discharged today. Antibiotics completed for another 10 days. The patient to follow up with Dr. Low Rabago this coming week. The patient will continue with her current active medication. Discussed with RN today. MD JOSE Jean/IAM /[id number]
--- NOTE | 2019-01-12 13:07 | Progress Note ---
DATE: 01/11/2019 SUBJECTIVE: The patient is seen at bedside, doing somewhat better. Still has some tenderness to both lower extremities, left more symptomatic than right. OBJECTIVE: VITAL SIGNS: Afebrile. Vital signs stable. EXTREMITIES: Cellulitis to both lower extremities noted. Incision sites are healing. No evidence of surgical dehiscence. Moderate amount of swelling noted to 2nd toe left foot when compared to the right 2nd toe. No surgical dehiscence noted. ASSESSMENT: Possible ostial 2nd toe left with cellulitis bilateral lower extremities, left worse than right. PLAN: Continue IV antibiotics. Continue offloading. Continue Bactroban ointment. The patient will be transferred to the hospital for continued IV. The patient to follow up in the office within a couple weeks. GYPSY Ellis/IAM /[id number]
== END 2019-01-11 12:20 | DRG 603 ==
LOC: ER 09:51 → ERHOLD 13:53 → MED/SURG2 14:50
PROVIDERS: ADMIT Internal Medicine; ATTEND Internal Medicine
PROC: 02HV33Z Insertion of Infusion Device into Superior Vena Cava, Percutaneous Approach (ICD-10-PCS; principal; 2019-01-07)
DX: L03.115 Cellulitis of right lower limb (principal); S91.312A Laceration without foreign body, left foot, initial encounter; S91.311A Laceration without foreign body, right foot, initial encounter; W25.XXXA Contact with sharp glass, initial encounter; Y93.H9 Activity, other involving exterior property and land maintenance, building and construction; S82.52XS Displaced fracture of medial malleolus of left tibia, sequela
CPT/HCPCS: 36415; 36569; 71045; 74470; 80053; 80202; 81001; 82550; 82553; 83605; 83735; 84484; 85025; 85610; 85651; 85730; 87040; 87086; 97139; 99284; J2405; J2543; J3370; J7030

== ENCOUNTER 2023-11-19 13:44 | Inpatient (IN) | payer MEDICARE ==
[~2023-11-19] VITALS: Ht 157.5 cm; Wt 59.9 kg
[~2023-11-19 13:44] MED LIST: AMOX TR-K CLV1 EAC2 PO; ARICEPT5 MG PO; DEPAKOTE125 MG PO; LISINOPRIL10 MG PO; MUPIROCIN22 GM TOP; PROZAC20 MG PO; SEROQUEL25 MG PO
[2023-11-19 14:00] VITALS: TEMP 97.9
[2023-11-19 14:16] LABS: BASOPHILS % 0.4 % (0.0-1.0); EOSINOPHILS # (AUTO) 0.1 (0.0-0.4); EOSINOPHILS % 1.4 % (0.0-6.0); HEMATOCRIT 41.5 % (34.2-44.1); HEMOGLOBIN 13.3 g/dL (12.0-16.0); LYMPHOCYTES # (AUTO) 1.6 (1.0-3.2); LYMPHOCYTES % 20.3 % (18.0-39.1); MEAN CORPUSCULAR HEMOGLOBIN 29.8 pg (28-32); MEAN CORPUSCULAR VOLUME 92.8 fL (81-99); MONOCYTES # (AUTO) 0.6 (0.2-0.8); MONOCYTES % 7.4 % (4.4-11.3); NEUTROPHILS # (AUTO) 5.6 (2.1-6.9); NEUTROPHILS % 70.2 % (38.7-80.0); PLATELET COUNT 355 x10e3/uL (140-360); RED BLOOD COUNT 4.47 x10e6/uL (3.6-5.1); RED CELL DISTRIBUTION WIDTH 13.7 % (11.7-14.4); WHITE BLOOD COUNT 7.98 x10e3/uL (4.8-10.8)
[2023-11-19 14:33] LABS: INR 0.87; PROTHROMBIN TIME 12.5 seconds (11.9-14.5)
[2023-11-19 14:34] LABS: PARTIAL THROMBOPLASTIN TIME 27.7 seconds (23.8-35.5)
[2023-11-19 14:38] LABS: ALANINE AMINOTRANSFERASE 22 IU/L (0-55); ALBUMIN 4.3 g/dL (3.5-5.0); ALBUMIN/GLOBULIN RATIO 1.1 (0.8-2.0); ALKALINE PHOSPHATASE 70 IU/L (40-150); BILIRUBIN,TOTAL 0.6 mg/dL (0.2-1.2); BLOOD UREA NITROGEN 12 mg/dL (7-26); BUN/CREATININE RATIO 14 (6-25); CALCIUM 10.1 mg/dL (8.4-10.2); CARBON DIOXIDE 25 mmol/L (22-29); CHLORIDE 100 mmol/L (98-107); CREATINE KINASE 62 IU/L (29-168); CREATININE, SERUM 0.83 mg/dL (0.57-1.11); EST GLOMERULAR FILTRATION RATE 74 ML/MIN (>=60); GLUCOSE 97 mg/dL (74-118); SODIUM 137 mmol/L (136-145); TOTAL PROTEIN 8.3 g/dL (6.5-8.1)
[2023-11-19 14:45] LABS: TROPONIN I < 0.001 ng/mL (0-0.300)
[2023-11-19 15:19] LABS: BILIRUBIN,URINE NEGATIVE (NEGATIVE); CLARITY,URINE SL CLOUDY (CLEAR); COLOR,URINE YELLOW (YELLOW); GLUCOSE, URINE NEGATIVE (NEGATIVE); KETONES,URINE NEGATIVE (NEGATIVE); LEUKOCYTE ESTERASE ,URINE SMALL (NEGATIVE); NITRITE,URINE NEGATIVE (NEGATIVE); PH,URINE 7 (5 - 7); PROTEIN,URINE DIPSTICK NEGATIVE (NEGATIVE); URINE UROBILINOGEN 1 mg/dL (0.2 - 1)
[2023-11-19 15:31] LABS: BACTERIA,URINE FEW /HPF; EPITHELIAL CELLS,URINE FEW /LPF; RBC,URINE 0-5 /HPF (0-5); RENAL EPITHELIAL CELLS,URINE MODERATE
[2023-11-19] MEDS ORDERED: ONDANSETRON HCL INJ 2MG/ML 2ML 2 MG/ML VIAL IV PRN (16:30)
[2023-11-19 16:56] VITALS: PULSE 75; RESP 16
[2023-11-19] MEDS: SODIUM CHLORIDE 0.9% 1000ML 1,000 ML IV SCH (18:22)
[2023-11-19] MEDS ORDERED: FLUOXETINE HCL20 MG PO (18:34)
[2023-11-19] MEDS ORDERED: LISINOPRIL20 MG PO (18:38)
[2023-11-19] MEDS ORDERED: DEPAKOTE SPRIN125 MG PO (18:38)
[2023-11-19] MEDS ORDERED: ARICEPT10 MG PO (18:38)
[2023-11-19] MEDS ORDERED: SEROQUEL100 MG PO (18:38)
[2023-11-19] MEDS ORDERED: MEMANTINE HCL E28 MG PO (18:38)
[2023-11-19 20:00] VITALS: BP 127/73; PULSE 74; RESP 18; TEMP 98; O2SAT 96
[2023-11-19 21:36] VITALS: BP 127/73; PULSE 74; RESP 18; TEMP 98; O2SAT 96
[2023-11-19 22:37] VITALS: BP 127/73; PULSE 74; RESP 18; TEMP 98; O2SAT 96
[2023-11-20] VITALS (7 sets, daily range): BP systolic 106–127; BP diastolic 64–86; PULSE 73–85; RESP 18–19; TEMP 97.1–98.3; O2SAT 95–100
[2023-11-20 06:10] LABS: BASOPHILS # (AUTO) 0.1 (0.0-0.1); BASOPHILS % 0.6 % (0.0-1.0); EOSINOPHILS # (AUTO) 0.2 (0.0-0.4); EOSINOPHILS % 1.8 % (0.0-6.0); HEMATOCRIT 38.6 % (34.2-44.1); HEMOGLOBIN 12.3 g/dL (12.0-16.0); LYMPHOCYTES # (AUTO) 1.4 (1.0-3.2); LYMPHOCYTES % 15.4 % (18.0-39.1); MEAN CORPUSCULAR HEMOGLOBIN 29.7 pg (28-32); MEAN CORPUSCULAR HGB CONC 31.9 g/dL (31-35); MEAN CORPUSCULAR VOLUME 93.2 fL (81-99); MONOCYTES # (AUTO) 0.6 (0.2-0.8); MONOCYTES % 6.8 % (4.4-11.3); NEUTROPHILS # (AUTO) 6.8 (2.1-6.9); NEUTROPHILS % 75.1 % (38.7-80.0); PLATELET COUNT 308 x10e3/uL (140-360); RED BLOOD COUNT 4.14 x10e6/uL (3.6-5.1); RED CELL DISTRIBUTION WIDTH 13.7 % (11.7-14.4); WHITE BLOOD COUNT 9.02 x10e3/uL (4.8-10.8)
[2023-11-20 06:39] LABS: ALBUMIN 3.4 g/dL (3.5-5.0); ALBUMIN/GLOBULIN RATIO 1.1 (0.8-2.0); ANION GAP 12.1 mmol/L (8-16); BILIRUBIN,TOTAL 0.5 mg/dL (0.2-1.2); CALCIUM 8.9 mg/dL (8.4-10.2); CREATININE, SERUM 0.8 mg/dL (0.57-1.11); POTASSIUM 4.1 mmol/L (3.5-5.1); TOTAL PROTEIN 6.5 g/dL (6.5-8.1)
[2023-11-20 07:20] LABS: CREATINE KINASE 38 IU/L (29-168)
[2023-11-20 07:32] LABS: TROPONIN I < 0.001 ng/mL (0-0.300)
[2023-11-20] MEDS: FLUOXETINE HCL 20 MG CAP PO SCH (12:27)
[2023-11-20] MEDS: DONEPEZIL HCL 5 MG TAB PO SCH (12:27)
[2023-11-20 14:29] LABS: CREATINE KINASE 38 IU/L (29-168)
[2023-11-20 14:40] LABS: TROPONIN I < 0.001 ng/mL (0-0.300)
[2023-11-20] MEDS: QUETIAPINE FUMARATE 100 MG TAB PO SCH (22:32)
[2023-11-21 04:00] VITALS: BP 140/75; PULSE 74; RESP 17; TEMP 97.8; O2SAT 96
[2023-11-21 09:35] VITALS: BP 140/75; PULSE 74; RESP 17; TEMP 97.8; O2SAT 96
[2023-11-21] MEDS: LISINOPRIL 20 MG TAB PO SCH (09:48)
[2023-11-21] MEDS: MEMANTINE 10 MG TAB PO SCH (09:48)
[2023-11-21 11:32] VITALS: BP 144/88; PULSE 73; RESP 19; TEMP 98.7; O2SAT 98
[2023-11-21] MEDS: ACETAMINOPHEN 325 MG TAB PO PRN (14:03)
[2023-11-21 17:07] VITALS: BP 113/66; PULSE 72; RESP 18; TEMP 97.9; O2SAT 96
[2023-11-21] MEDS ORDERED: ONDANSETRON HCL 4 MG ORAL DISINTEGRATING TAB PO PRN (18:15)
[2023-11-21 20:00] VITALS: BP 126/82; PULSE 72; RESP 16; TEMP 98.3; O2SAT 100
[2023-11-22] VITALS: BP 111/71; PULSE 72; RESP 17; TEMP 97.5; O2SAT 97
[2023-11-22 04:00] VITALS: BP 112/64; PULSE 60; RESP 17; TEMP 97.6; O2SAT 100
[2023-11-22 08:00] VITALS: BP 114/84; PULSE 71; RESP 16; TEMP 97.7; O2SAT 97
[2023-11-22 09:00] VITALS: BP 114/84; PULSE 71; RESP 16; TEMP 97.7; O2SAT 97
[2023-11-22 12:00] VITALS: BP 126/93; PULSE 80; RESP 18; TEMP 98.8; O2SAT 99
[2023-11-22] MEDS ORDERED: AMOXICILLIN250 MG PO (13:04)
== END 2023-11-22 15:35 | disposition home or self-care (01) | DRG 689 ==
LOC: ER 13:57 → ERHOLD 16:23 → MED/SURG2 18:22
PROVIDERS: ADMIT Internal Medicine; ATTEND Internal Medicine
DX: N39.0 Urinary tract infection, site not specified (principal); G93.41 Metabolic encephalopathy; G30.9 Alzheimer's disease, unspecified; F02.84 Dementia in other diseases classified elsewhere, unspecified severity, with anxiety; F02.83 Dementia in other diseases classified elsewhere, unspecified severity, with mood disturbance; I10 Essential (primary) hypertension; B95.1 Streptococcus, group B, as the cause of diseases classified elsewhere; R32 Unspecified urinary incontinence; Z88.5 Allergy status to narcotic agent; Z11.52 Encounter for screening for COVID-19
CPT/HCPCS: 36415; 51700; 70450; 70551; 71045; 80053; 81001; 82140; 82550; 84484; 85025; 85610; 85730; 87040; 87086; 93005; 95819; 99252; 99284; J0696; J7030; U0002